=== PATIENT | male | born 1975 | race Caucasian/White ===

== ENCOUNTER 2022-01-24 09:56 | Emergency (ER) | payer OTHER ==
[2022-01-24] MEDS ORDERED: Lidocaine/EPINEPHrine/Tetracaine Soln 1 ML TOP ONE (10:38)
[2022-01-24] MEDS ORDERED: Lidocaine 1% with EPINEPHrine 1:100,000 10 ML MDV INJECT ONE (10:38)
[2022-01-24] MEDS ORDERED: Lidocaine 1% 10 ML MDV INJECT ONE (11:11)
== END 2022-01-24 12:15 | disposition home or self-care (01) ==
LOC: JD.ED 09:56
DX: K61.1 Rectal abscess (principal); Z79.899 Other long term (current) drug therapy
CPT/HCPCS: 46040; 99283-25